=== PATIENT | female | born 1995 | race African-American/Black ===

== ENCOUNTER 2022-02-22 11:50 | Emergency (ER) | payer SELFPAY ==
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
[2022-02-22] MEDS ORDERED: KETOROLAC 30 MG/ML INJ ONE (13:24)
--- NOTE | 2022-02-22 14:06 | RAD REPORT ---
EXAM DESCRIPTION: RAD - Hand Left 3 View - 02/22/2022 1:45 pm CLINICAL HISTORY: PAIN COMPARISON: No comparisons FINDINGS: Mild soft tissue swelling is seen along the medial aspect of the hand. No fracture is appa rent. Small radiopaque foreign bodies are evident.
[2022-02-22 14:13] VITALS: TEMP 98.6; O2SAT 100
[2022-02-22 14:14] VITALS: BP 128/76
== END 2022-02-22 13:31 | disposition home or self-care (01) ==
LOC: ER 11:50
DX: S63.92XA Sprain of unspecified part of left wrist and hand, initial encounter (principal); S63.502A Unspecified sprain of left wrist, initial encounter; Z87.828 Personal history of other (healed) physical injury and trauma; F17.290 Nicotine dependence, other tobacco product, uncomplicated; Z88.5 Allergy status to narcotic agent; Z28.310 Unvaccinated for COVID-19
CPT/HCPCS: 96372; 99284